=== PATIENT | male | born 1960 | race Caucasian/White ===

== ENCOUNTER 2017-12-15 07:29 | Day surgery (SDC) | payer OTHER, SELFPAY ==
[2017-12-15 07:46] VITALS: BP 144/82; PULSE 65; RESP 14; TEMP 36.9; O2SAT 99; BMI 26.5
[2017-12-15 08:52] VITALS: BP 117/72; BP 144/82; PULSE 67; RESP 18; TEMP 36.2; O2SAT 96
--- NOTE | 2017-12-15 08:53 | OP.ENDO_ITS ---
Patient Name: Jeremiah De La Cruz Procedure Date: 12/15/2017 8:28 AM Date of : 1960 Age: 57 Procedure: Colonoscopy Indications: Colon cancer screening in patient at increased risk: Colorectal cancer in sister Providers: Jeison Pimentel MD Referring MD: Jeison Pimentel MD Medicines: See the Anesthesia note for documentation of the administered medications Patient Profile: Last Colonoscopy: 5 years ago. Complications: No immediate complications. Procedure: Pre-Anesthesia Assessment: - Prior to the procedure, a History and Physical was performed, and patient medications and allergies were reviewed. The patient's tolerance of previous anesthesia was also reviewed. The risks and benefits of the procedure and the sedation options and risks were discussed with the patient. All questions were answered, and informed consent was obtained. Prior Anticoagulants: The patient has taken no previous anticoagulant or antiplatelet agents. ASA Grade Assessment: II - A patient with mild systemic disease. After reviewing the risks and benefits, the patient was deemed in satisfactory condition to undergo the procedure. After I obtained informed consent, the scope was passed under direct vision. Throughout the procedure, the patient's blood pressure, pulse, and oxygen saturations were monitored continuously. The colonoscope was introduced through the anus and advanced to the ileocecal valve. The colonoscopy was performed without difficulty. The patient tolerated the procedure well. The quality of the bowel preparation was excellent. Scope In: 8:35:27 AM Scope Withdrawal Time 0 hours 6 minutes 12 seconds Scope Out: 8:48:16 AM Total Procedure Duration Time 0 hours 12 minutes 49 seconds Findings: Multiple small-mouthed diverticula were found in the sigmoid colon. No biopsies or other specimens were collected for this exam. The exam was otherwise without abnormality. Impression: - Diverticulosis in the sigmoid colon. No specimens collected. - The examination was otherwise normal. Recommendation: - Discharge patient to home. - Resume previous diet. - Continue present medications. - Repeat colonoscopy in 5 years for surveillance. - Return to primary care physician PRN. Procedure Code(s): --- Professional --- G0105, Colorectal cancer screening; colonoscopy on individual at high risk Diagnosis Code(s): --- Professional --- Z80.0, Family history of malignant neoplasm of digestive organs K57.30, Diverticulosis of large intestine without perforation or abscess without bleeding CPT copyright 2017 [employer]. All rights reserved. The codes documented in this report are preliminary and upon hazardous materials waste technician review may be revised to meet current compliance requirements. MD Jeison Villalba MD 12/15/2017 8:53:06 AM This report has been signed electronically. Number of Addenda: 0 Note Initiated On: 12/15/2017 8:28 AM
--- NOTE | 2017-12-15 08:53 | PCM.HP.STD ---
Problem List (1) Family history of colon cancer Status: Acute History of Present Illness Date of Admission: 12/15/17 The patient is a 57 year old M who presents for screening colonoscopy. I last performed a colonoscopy on him 5 years ago for a family history of colon cancer. He had a sister who had colon cancer. Past Medical History Allergies No Known Allergies Allergy (Verified 12/15/17 07:44) Home Medications: Ambulatory Orders Medication Instructions Recorded NK 12/11/17 Smoking Status: Never smoker - *Family History Sibling History Items: Cancer - Sister with colon cancer Review of Systems Cardiovascular: Denies: Chest Pain, Chest Pressure, Chest Tightness, Palpitations Respiratory: Denies: Cough, Hemoptysis, Shortness of breath at rest, Shortness of breath upon exertion, Wheezing Gastrointestinal: Denies: Abdominal Pain, Constipation, Diarrhea, Hematemesis, Nausea, Melena, Vomiting VTE Information - Inpt Only VTE Present on Admission: No VTE Mechan Device Prophylaxis: None VTE Pharm Prophylaxis ordered?: No Reason prophylaxis not ordered:: Treatment Not Indicated Patient Problems: Active and Suspected Problems Family history of colon cancer (Acute) - Physical Exam General: Alert, Oriented x3 Lungs: Clear to auscultation Cardiovascular: Regular rate, Regular Rhythm, No murmurs Abdomen: Bowel Sounds Present, Soft, Non Tender, Non-Distended Vital Signs Temp Pulse Resp BP Pulse Ox 98.4 F 65 14 144/82 H 99 12/15/17 07:46 12/15/17 07:46 12/15/17 07:46 12/15/17 07:46 12/15/17 07:46 Oxygen Delivery Method Room Air Weight: 174 lb 9.698 oz Body Mass Index (BMI) 26.5 Assessment/Plan All Active Problems Family history of colon cancer (Acute) Plan will be to perform a colonoscopy.
[2017-12-15 08:57] VITALS: BP 108/65; BP 144/82; PULSE 67; RESP 18; O2SAT 97
[2017-12-15 09:03] VITALS: BP 123/70; BP 144/82; PULSE 62; RESP 18; O2SAT 95
[2017-12-15 09:09] VITALS: BP 131/77; BP 144/82; PULSE 55; RESP 18; TEMP 36.5; O2SAT 97
[2017-12-15 09:32] VITALS: BP 144/82
== END 2017-12-15 09:33 | disposition home or self-care (01) ==
LOC: EN 07:29 → AC 07:32
PROVIDERS: Family Provider Family Medicine; Referring Provider Surgery; Visit Provider Surgery
PROC: 0DJD8ZZ Inspection of Lower Intestinal Tract, Via Natural or Artificial Opening Endoscopic (ICD-10-PCS; CPT 45378; principal; 2017-12-15 08:40)
DX: Z12.11 Encounter for screening for malignant neoplasm of colon (principal); K57.30 Diverticulosis of large intestine without perforation or abscess without bleeding; Z80.0 Family history of malignant neoplasm of digestive organs; Z85.46 Personal history of malignant neoplasm of prostate; Z87.442 Personal history of urinary calculi
CPT/HCPCS: 45378; J7120; J1610; J2405